=== PATIENT | male | born 1985 | race Caucasian/White ===

== ENCOUNTER 2024-07-06 04:57 | Emergency (ER) | payer BC ==
[2024-07-06] MEDS ORDERED: traMADol 50 MG Tab ONE (05:30)
[2024-07-06 05:39] VITALS: BP 141/101; PULSE 98
== END 2024-07-06 05:50 | disposition home or self-care (01) ==
LOC: LB.ED 04:57
DX: K08.89 Other specified disorders of teeth and supporting structures (principal); F17.210 Nicotine dependence, cigarettes, uncomplicated; Z88.5 Allergy status to narcotic agent; Z79.899 Other long term (current) drug therapy; Z86.16 Personal history of COVID-19
CPT/HCPCS: 99283; A9270-GY